=== PATIENT | female | born 1935 | race Caucasian/White ===

== ENCOUNTER → 2016-10-26 18:40 | Observation (INO) ==
--- NOTE | 2016-10-25 11:11 | History & Physical Report ---
<Asia Enriquez - Last Filed: 10/25/16 12:00> History of Present Illness Date: 10/25/16 Chief complaint: back pain HPI: Clara Moncada is a 81 y/o lady directly admitted to observation status from Dr. Caro's office for intractable back and b/l hip pain. She states her pain started in her right hip on Friday night (10/19/16), and she thought it was arthritis. By the following day, the pain spread across her lower abdomen, to her back, and left hip. She saw Dr. Caro on Friday, and she found an insect bite on her abd that represented a bullseye appearance. Concerned for tick- borne illness causing joint pain, she Rx Doxyclycine. However, on Friday am, her pain was even worse. She was barely able to move, let alone walk. She went to the ED, where a CT of her abd/pelvis was obtained (overall negative) and was Rx Medrol and Percocet (but never filled the Percocet). She has not seen an improvement in pain since the onset. Denies fevers, chills, but did have some sweating one day. She denies paresthesias, loss of bowel function, dysuria, or frequency. She has chronic urinary incontinence. She has had mild intermittent nausea, but no vomiting/constipation/diarrhea. She had chest pressure last night that was relieved by resting/relaxing - she thinks her pain was r/t frustration and anxiety. She also notes some post-nasal drip and dry throat without cough or dyspnea. No weakness/dizziness. Dr. Caro noticed a 9 lb weight gain and Clara has seen an increase in swelling to her legs. She skipped her Lasix dose on 1 day (10/22/16), but has taken it other days. Review of Systems All systems: reviewed and no additional remarkable complaints except as stated - Constitutional Constitutional: Present: weight gain. Absent: chills - EENMT Eyes: Absent: change in vision Nose: Present: allergies Mouth/Throat: Present: scratchy throat, dry mouth - Cardiovascular Cardiovascular: Present: chest pain, heart murmur Vascular: Present: pedal edema, unilateral swelling (left leg is always more swollen) - Respiratory Respiratory: Absent: cough - Gastrointestinal Gastrointestinal: Present: abdominal pain, nausea. Absent: constipation, diarrhea, vomiting - Musculoskeletal Musculoskeletal: Present: as per HPI, back pain. Absent: arthralgias, joint swelling, muscle weakness - Integumentary/Breasts Integumentary: Present: other (insect, possibly tick bite, to right side of abdomen - fading) - Neurological Neurological: Absent: burning sensations, numbness, paresthesias, weakness - Endocrine Endocrine: Absent: excessive sweating - Hematologic/Lymphatic Hematologic/Lymphatic: Present: easy bruising - Allergic/Immunologic Allergic/Immunologic: Present: seasonal rhinorrhea PFSH CHF, diastolic CAD, ischemic heart disease HTN Breast cancer 1993 CKD stage III OA Obesity Macular degeneration Surgical History: 1979 Cholecystectomy. 1982 Total Hysterectomy. 1993 Radical Right mastectomy. 1998 Bladder procedure. 2000 Septoplasty for deviated septum. 2002 Modified left mastectomy (prophylactic). 2004 Endoscopic sinus surgery. 2004 and 2009 colonoscopies. 2007 Bunionectomy and toe repair. 2011 ORIF left elbow/arm. 2012 Right cataract surgery. 02/2016 Cardiac catheterization with stent. 07/2016 Chemical stress test - Left inferior wall ischemia. Echo - grade I/IV diastolic dysfunction, EF 70% Family History: Brother - heart problems, at age 89 Brother - of lung cancer, at age 54 Sister - non Hodgkin lymphoma, stage IV ovarian cancer - still living (3 years younger than Clara Burns) Sister - CAD with 3 stents (7 years older than Clara Burns) Mother - thyroid problems in her later years, at ate 96 Father - at age 78 of a tractor accident Son - prediabetic, had part of thyroid removed Daughter - MVP, pituitary adenoma - Social History Smoking status: Never smoker Substance use type: does not use Alcohol intake frequency: does not drink Housing: house Household members: none Social history: PCP - Dr. Caro CV - Dr. Albarran Neph - Dr. Wilcox Medications Home Medications Medication Instructions Recorded Confirmed Type Aspirin [Aspir 81] 81 mg PO DAILY #0 08/23/09 10/25/16 History Furosemide 80 mg PO DAILY #0 08/24/09 10/25/16 History Propylene Glycol/Peg 400 [Systane 1 drop BOTH EYES QID #0 02/23/12 10/25/16 History Gel Eye Drops] Allopurinol 200 mg PO DAILY #0 tab 08/09/13 10/25/16 History Atenolol 50 mg PO DAILY #0 tab 07/25/14 10/25/16 History Cholecalciferol (Vitamin D3) 1,000 unit PO DAILY #0 07/25/14 10/25/16 History [Vitamin D3] Potassium Chloride 40 meq PO BIDWM #0 tab 07/25/14 10/25/16 History Atorvastatin 20 mg PO DAILY 10/22/16 10/25/16 History Clopidogrel 75 mg PO DAILY 10/22/16 10/25/16 History Colace 100 mg PO BID PRN 10/22/16 10/25/16 History Doxycycline Monohydrate 100 mg PO BID 10/22/16 10/25/16 History Flaxseed 2 - 3 tbsp PO DAILY 10/22/16 10/25/16 History Levothyroxine Sodium 100 mg PO ACB 10/22/16 10/25/16 History Nitroglycerin 0.4 mg SL Q5M PRN 10/22/16 10/25/16 History Women's Daily Caplet 1 tab PO DAILY 10/22/16 10/25/16 History Allergies Allergy/AdvReac Type Severity Reaction Status Date / Time lisinopril Allergy Severe Renal Verified 10/25/16 10:49 Insufficiency amoxicillin Allergy Intermediate LIGHTHEADED Verified 10/25/16 10:49 NESS diltiazem Allergy Intermediate FLUID Verified 10/25/16 10:49 RETENTION enalapril Allergy Intermediate DRY COUGH Verified 10/25/16 10:49 hydrochlorothiazide Allergy Intermediate RASH Verified 10/25/16 10:49 metoprolol Allergy Intermediate Verified 10/25/16 14:57 sulfamethoxazole Allergy Intermediate BURNING IN Verified 10/25/16 10:49 THROAT triamterene Allergy Intermediate RASH Verified 10/25/16 10:49 trimethoprim Allergy Intermediate BURNING IN Verified 10/25/16 10:49 THROAT acetaminophen [From Lortab] AdvReac Intermediate Abdominal Verified 10/25/16 14: 57 Discomfort azithromycin AdvReac Intermediate Arrhythmia Verified 10/25/16 15:05 carvedilol AdvReac Intermediate Itching Verified 10/25/16 15:05 codeine AdvReac Intermediate Fainting Verified 10/25/16 15:05 gemfibrozil AdvReac Intermediate Abdominal Verified 10/25/16 15:05 Discomfort hydrocodone [From Lortab] AdvReac Intermediate Abdominal Verified 10/25/16 14:57 Discomfort indomethacin AdvReac Intermediate Shortness Verified 10/25/16 15:05 of Breath (Air) meloxicam AdvReac Intermediate Verified 10/25/16 15:05 morphine AdvReac Intermediate Hallucinati Verified 10/25/16 15:05 ng nitrofurantoin AdvReac Intermediate Verified 10/25/16 15:05 [From Macrobid] spironolactone AdvReac Intermediate Rash Verified 10/25/16 15:05 telithromycin [From Ketek] AdvReac Intermediate Rash Verified 10/25/16 15:05 meperidine HCl Allergy Severe HALLUCINATI Uncoded 10/25/16 10:49 ONS Exam Height: 1.63 m Weight: 103.2 kg Body Mass Index: 39.0 - Constitutional Present: no acute distress, well nourished, well developed, morbidly obese - Routine HEENT Exam Head: Present: normocephalic, atraumatic Eye: Absent: conjunctival icterus, scleral injection ENT: Present: mucous membranes dry, oropharynx clear, dentition normal - Routine Neck Exam Present: supple - Routine Respiratory Exam Present: CTA bilaterally - Routine Cardiovascular Exam Present: S1, S2, murmur (2/6 systolic murmur) - Routine Abdominal Exam Present: soft, normoactive bowel sounds, non distended, non tender - Routine Extremities Exam Present: edema (1+ BLE; right leg is more swollen - chronic per patient), pulses intact, normal capillary refill. Absent: calf tenderness, joint swelling - Routine Back/Spine/Pelvis Exam Back/Spine: Absent: paraspinal tenderness, vertebral tenderness, muscle spasm Pelvis: Absent: sacral tenderness Comments: Patient did not want to roll to the side or stand up because of fear of pain. I did not ask her to do these activities since Dr. Leon was going to evaluate her. - Routine Skin Exam Present: intact, dry, warm, ecchymosis (arms) - Routine Neurological Exam Present: alert, oriented X3 - Routine Psychiatric Exam Present: normal affect, normal thought process Results - Labs CBC & Chem 7: 10/25/16 11:34 10/25/16 11:34 Assessment and Plan (1) Intractable pain Current visit: Yes Status: Acute (2) Tick bite of abdomen Current visit: Yes Status: Acute (3) CHF (congestive heart failure) Current visit: Yes Status: Chronic (4) HTN (hypertension) Current visit: Yes Status: Chronic (5) CKD (chronic kidney disease) stage 3, GFR 30-59 ml/min Current visit: Yes Status: Chronic (6) CAD (coronary artery disease) Current visit: Yes Status: Chronic Assessment and Plan: Admit to observation status 1. Back/hip pain -Check basic labs - CBC, BMP, CRP, UA -Consult Dr. Leon - recommend MRI of lumbar and spine f/u -Recent imaging: CT abd/pelvis on 10/22/16: bone windows show degenerative changes and scoliosis; no acute disease -consult PT/OT after MRI results are known -pain control: multiple allergies. Agreeable to try tramadol; low-dose Dilaudid if needed. 2. Hx diastolic CHF with acute 9 lb weight gain -check BNP -CXR to assess pulmonary fluid status 3. Possible tick bite to abdomen -continue Doxycycline 4. Advanced care planning -none completed -Full code 5. Discharge planning -Dependent on PT/OT eval and MRI results Discussed with Dr. Leon, NICKIE Escobar, Dr. Wilkins, and nursing staff. Hospital Course Summary Disclaimer: The visit summary below is not to be considered part of the above Progress Note. Hospital Course: 10/25/16 12:35 Admit to observation status 1. Back/hip pain -Check basic labs - CBC, BMP, CRP, UA -Consult Dr. Leon - recommend MRI of lumbar and spine f/u -Recent imaging: CT abd/pelvis on 10/22/16: bone windows show degenerative changes and scoliosis; no acute disease -consult PT/OT after MRI results are known -pain control: multiple allergies. Agreeable to try tramadol; low-dose Dilaudid if needed. 2. Hx diastolic CHF with acute 9 lb weight gain -check BNP -CXR to assess pulmonary fluid status 3. Possible tick bite to abdomen -continue Doxycycline 4. Advanced care planning -none completed -Full code 5. Discharge planning -Dependent on PT/OT eval and MRI results <Vicenta Wilkins - Last Filed: 10/25/16 21:54> History of Present Illness Date: 10/25/16 REPLACED BY [facility] Patient Stated Medical History Cataracts Yes Dental Problems Yes Hearing Loss Yes: USES HEARING AIDES Macular Degeneration WEARS GLASSES Congestive Heart Failure Yes Coronary Artery Disease Yes Heart Murmur Yes Hypertension Yes Other GI Yes: CONSTIPATION Hx Incontinence Yes Hx Renal Disease Yes: RENAL FAILURE Osteoarthritis Yes: RIGHT HIP Other Musculoskeletal Yes: HUMERUS LEFT FX Ovarian Cysts Yes Post Menopausal Yes Exam Vital Signs: Temp Pulse Resp BP Pulse Ox 97.4 F 55 L 16 141/66 H 95 10/25/16 16:00 10/25/16 16:00 10/25/16 16:00 10/25/16 16:00 10/25/16 16:00 Height: 1.63 m Weight: 103.2 kg Results - Labs CBC & Chem 7: 10/25/16 11:34 10/25/16 11:34 Assessment and Plan (1) Intractable pain Current visit: Yes Status: Acute (2) CHF (congestive heart failure) Current visit: Yes Status: Chronic Chronic diastolic CHF-ejection fraction 75% earlier this year 10/25/16 21:41 (3) HTN (hypertension) Current visit: Yes Status: Chronic (4) CKD (chronic kidney disease) stage 3, GFR 30-59 ml/min Current visit: Yes Status: Chronic (5) Tick bite of abdomen Current visit: Yes Status: Acute 10/25/16 21:40 Presumed (6) CAD (coronary artery disease) Current visit: Yes Status: Chronic (7) Leukocytosis Current visit: Yes Status: Acute 10/25/16 21:42 Consistent with steroids Assessment and Plan: I have independently evaluated and examined this patient. I reviewed the chart, the patient's history, and the [employer] T[employer]EL E[employer]IC OPERATOR's documented findings as above. We discussed and formulated the assessment and plan as above with additions as below: Mrs. Moncada presents with pain across her low back and left hip after originally presenting in the right hip. There are no radicular symptoms or sensory loss. She denies bowel or bladder dysfunction. Pain is aggravated by movement and weightbearing. Patient is able to raise legs independently, dorsiflexion plantar flexion are intact, knee jerks cannot be elicited, and sensation is present medial and laterally proximally and distally in the lower extremities. Temporally onset of pain corresponds to identification of a target lesion on the abdomen. I did not identify point tenderness over the lumbar spine (although spinal tenderness was reported by orthopedics) or SI joints. Laboratory data notable only for leukocytosis explained by recent steroids and mild hypernatremia. BNP minimally elevated. MRI obtained and reviewed by myself revealing superior endplate compression fracture at L3 with edema and some DDD without central stenosis or significant neural foraminal stenosis. Chest x-ray also reviewed by myself revealing mild increased vascular markings diffusely. Discussed with Dr. Leon earlier today; patient advised of results of MRI-denies any falls since June but reports she does significant lifting. Discontinue prednisone. Continue Percocet with increased frequency of every 4 when necessary. Will obtain LS spine films for baseline and to better assess degree of compression. Schmidt catheter placed to permit aggressive diuresis overnight. Discussed with Dr. Caro earlier today. Outpatient records reviewed. Sepsis Assessment - Focused Exam Vital Signs Temp Pulse Resp BP Pulse Ox 10/25/16 16:00 97.4 F 55 L 16 141/66 H 95 10/25/16 10:13 52 L 18 181/71 H 97 Hospital Course Summary Disclaimer: The visit summary below is not to be considered part of the above Progress Note.
--- NOTE | 2016-10-25 12:47 | Orthopedic Consult Note ---
Orthopedic Consultation HPI - Consultation Info Consult Date: 10/25/16 Attending Physician: Dc Leon MD Consult Reason: back pain (and bilateral hip pain) - HPI Elements bilateral back Injury: No Pain: sharp, throbbing Onset: sudden (10/19/16) Radiating: Yes (to anterior pelvic area and lower back) Severity: moderate, severe Duration: several days How Often Does Pain Occur: constant Previous Surgery: No (no previous back surgery) Previous Injury: No Aggrevated by: standing, walking, prolonged sitting, all activity Treatments Tried: pain medications, rest X-ray Findings: Other (CT abdomen pelvis shows scoliosis and degenerative arthritis of bilateral hips. No fracture.) Recommendation: other (Her symptoms seem less consistent with hip or pelvis origin. They are possibly arising from her lower back. Dr. Leon does not specialize in spine, and is recommending orthopeadic spine referral. MRI would be helpful and could be ordered as per hospitalist team.) - History of Present Illness This is a 81 year old female who presents with chief complaint of pelvic pain and lower back pain. She is a patient of Dr. Caro. Dr. Caro recommended admission under the hospitalist service for intractable lower back and bilateral hip pain. She has had a CT of her abdomen and pelvis complete in the ER on 10/22/16 which showed scoliosis, DJD of bilateral hips and otherwise negative for acute issue. Her onset was 10/19/16, without known injury. Pain began in her left lateral hip, then radiated to her lumbar back and right anterior pelvic area. She points generally to the level of bilateral ASIS. Her pain has been worse with ambulation, she gets some relief with sitting. Prolonged sitting also causes pain. Laying down flat increases pain, but she gets relief if she elevated the head of the bed and puts a pillow under her knees. She denies true radicular pain below the level of the knees. She denies previous back surgery. Her daughter has noted that she walks with a cane and has had progressive forward pitch of her upper body as the years have gone by. She also noted a tick bite on the right lower abdomen, daughter describes a "target lesion", which has been treated according to the medical service with Doxycycline. She has not had an MRI at the time of this consultation. Review of Systems - Constitutional Constitutional: Absent: chills, headache(s), malaise - Cardiovascular Cardiovascular: Absent: chest pain, syncope Vascular: Absent: pallor of an extermity - Respiratory Respiratory: Absent: cough, dyspnea - Gastrointestinal Gastrointestinal: Present: constipation (last week, self treated with Flax seed. ). Absent: abdominal pain, diarrhea, hematochezia - Genitourinary Genitourinary General: Absent: chills, fever(s) Genitourinary Female: Absent: dysuria - Musculoskeletal Musculoskeletal: Present: as per HPI Additional comments: Denies true groin pain with ambulation - Neurological Neurological: Absent: memory loss, numbness, radicular pain, sensory deficit [facility] Patient Stated Medical History Cataracts Yes Dental Problems Yes Hearing Loss Yes: USES HEARING AIDES Macular Degeneration WEARS GLASSES Congestive Heart Failure Yes Coronary Artery Disease Yes Heart Murmur Yes Hypertension Yes Other GI Yes: CONSTIPATION Hx Incontinence Yes Hx Renal Disease Yes: RENAL FAILURE Osteoarthritis Yes: RIGHT HIP Other Musculoskeletal Yes: HUMERUS LEFT FX Ovarian Cysts Yes Post Menopausal Yes Surgical History: 1979 Cholecystectomy. 1982 Total Hysterectomy. 1993 Radical Right mastectomy. 1998 Bladder procedure. 2000 Septoplasty for deviated septum. 2002 Modified left mastectomy (prophylactic). 2005 Endoscopic sinus surgery. 2004 and 2010 colonoscopies. 2008 Bunionectomy and toe repair. 2011 ORIF left elbow/arm. 2013 Right cataract surgery. 02/2016 Cardiac catheterization with stent. 07/2016 Chemical stress test - Left inferior wall ischemia. Echo - grade I/IV diastolic dysfunction, EF 70% - Social History Smoking status: Never smoker Medications Home Medications Medication Instructions Recorded Confirmed Type Aspirin [Aspir 81] 81 mg PO DAILY #0 08/23/09 10/22/16 History Furosemide 80 mg PO DAILY #0 08/24/09 10/22/16 History Propylene Glycol/Peg 400 [Systane 1 drop BOTH EYES QID #0 02/23/12 10/22/16 History Gel Eye Drops] Allopurinol 200 mg PO DAILY #0 tab 08/09/13 10/22/16 History Atenolol 50 mg PO DAILY #0 tab 07/25/14 10/22/16 History Cholecalciferol (Vitamin D3) 1,000 unit PO DAILY #0 07/25/14 10/22/16 History [Vitamin D3] Potassium Chloride 40 meq PO BIDWM #0 tab 07/25/14 10/22/16 History Atorvastatin 20 mg PO DAILY 10/22/16 10/22/16 History Clopidogrel 75 mg PO DAILY 10/22/16 10/22/16 History Colace 100 mg PO BID PRN 10/22/16 10/22/16 History Doxycycline Monohydrate 100 mg PO BID 10/22/16 10/22/16 History Flaxseed 2 - 3 tbsp PO DAILY 10/22/16 10/22/16 History Levothyroxine Sodium 100 mg PO ACB 10/22/16 10/22/16 History Nitroglycerin 0.4 mg SL Q5M PRN 10/22/16 10/22/16 History Women's Daily Caplet 1 tab PO DAILY 10/22/16 10/22/16 History Allergies Allergy/AdvReac Type Severity Reaction Status Date / Time lisinopril Allergy Severe Renal Verified 10/25/16 10:49 Insufficiency amoxicillin Allergy Intermediate LIGHTHEADED Verified 10/25/16 10:49 NESS diltiazem Allergy Intermediate FLUID Verified 10/25/16 10:49 RETENTION enalapril Allergy Intermediate DRY COUGH Verified 10/25/16 10:49 hydrochlorothiazide Allergy Intermediate RASH Verified 10/25/16 10:49 metoprolol Allergy Intermediate Gastrointestinal Verified 10/25/16 10:49 Upset sulfamethoxazole Allergy Intermediate BURNING IN Verified 10/25/16 10:49 THROAT triamterene Allergy Intermediate RASH Verified 10/25/16 10:49 trimethoprim Allergy Intermediate BURNING IN Verified 10/25/16 10:49 THROAT meperidine HCl Allergy Severe HALLUCINATI Uncoded 10/25/16 10:49 ONS Orthopedic Exam Vital signs: Pulse Resp BP Pulse Ox 52 L 18 181/71 H 97 10/25/16 10:13 10/25/16 10:13 10/25/16 10:13 10/25/16 10:13 - Constitutional General Appearance: Present: alert, orientated x3, no acute distress - Respiratory Exam Present: non-labored - Cardiovascular Exam Present: pedal pulses intact Capillary Refill: < 2-3 Seconds - Abdominal Exam Present: soft. Absent: tenderness, distended - Extremities Exam Present: pulses intact. Absent: no edema, calf tenderness, joint swelling - Hip Exam bilateral Hip Exam: Present: alignment normal, ROM-normal. Absent: unequal leg length, tender over trochanter, painful PROM Comments: negative log roll. Pain free passive and active ROM. She is TTP in the lumbar spine. - Integumentary Exam Present: pink, warm, dry, lesions (right lower abdomen, "tick bit" per history) - Neurological Exam Present: intact to light touch, no deficits downgoing Babinski, no clonus present. David intact L1-S1. - Psychiatric Exam Present: alert, oriented, normal affect - Labs Result Diagrams: 10/25/16 11:34 10/25/16 11:34 Abnormal lab results 10/25/16 10/25/16 10/25/16 Range/Units 10:30 11:34 11:34 WBC 12.2 H D (4.5-11.0) T/MM3 RBC 3.85 L (4.00-5.20) M/MM3 Hgb 11.8 L (12-16) GM/DL MPV 9.2 L (9.4-12.4) UM3 Neutrophils % (Manual) 90.0 H (33-66) % Lymphocytes % (Manual) 5.0 L (23-45) % Metamyelocytes % 1.0 H (0-0) % Neutrophils # (Manual) 11.0 H (1.8-7.7) T/MM3 Lymphocytes # (Manual) 0.6 L (1-4.8) T/MM3 Sodium 147 H (134-144) MEQ/L Carbon Dioxide 31 H (22-30) MEQ/L BUN 21.0 H (7-17) MG/DL Calculated Osmolality 285 H (261-280) MOSM/KG B-Natriuretic Peptide 611 H (0-175) pg/mL Urine Bacteria 1+ H (NEGATIVE) H & H 10/25/16 Range/Units 11:34 Hgb 11.8 L (12-16) GM/DL Hct 36.9 (36-46) % Impression and Recommendation (1) Back pain Current visit: Yes Qualifiers: Back pain location: low back pain Back pain laterality: bilateral Sciatica presence: without sciatica Status: Acute Refferral to an orthopaedic client relations specialist on an outpatient basis. MRI would be suggested for further evaluation and could be ordered as per hospitalist. Our suspicion is that she has left sided foraminal narrrowing secondary to scoliosis and spinal stenosis. Ortho will sign off at this time. Continue current medical care. Hospital Course Summary Disclaimer: The visit summary below is not to be considered part of the above Progress Note. Hospital Course: 10/25/16 12:35 Admit to observation status 1. Back/hip pain -Check basic labs - CBC, BMP, CRP, UA -Consult Dr. Leon - recommend MRI of lumbar and spine f/u -Recent imaging: CT abd/pelvis on 10/22/16: bone windows show degenerative changes and scoliosis; no acute disease -consult PT/OT after MRI results are known -pain control: multiple allergies. Agreeable to try tramadol; low-dose Dilaudid if needed. 2. Hx diastolic CHF with acute 9 lb weight gain -check BNP -CXR to assess pulmonary fluid status 3. Possible tick bite to abdomen -continue Doxycycline 4. Advanced care planning -none completed -Full code 5. Discharge planning -Dependent on PT/OT eval and MRI results
--- NOTE | 2016-10-25 13:29 | XRay Report ---
Indication: chf PROCEDURE: XR chest 1V: Encounter: Initial Comparison: None Findings: The lungs are grossly clear. Areas of lucency suggesting possible emphysema. No pleural effusion or pneumothorax. Cardiac silhouette is moderately enlarged. Mediastinal contours and pulmonary vascularity are within normal limits. Right axillary surgical clips. Impression: No pneumonia. Enlarged cardiac silhouette could be due to cardiomegaly or pericardial effusion. .
--- NOTE | 2016-10-25 16:09 | Magnetic Resonance Report ---
Indication: intractable pain PROCEDURE: MR lumbar spine wo con: Encounter: Initial Comparison: None Technique: Multiplanar multisequence MR imaging of the lumbar spine was performed without contrast. Findings: Scoliosis. There is a mild superior endplate compression deformity of L3 with underlying edema suggesting a recent injury. The remaining lumbar vertebral body heights are maintained. Small hemangiomas noted incidentally at L1 and L2. Bone marrow signal intensity is otherwise normal. Conus medullaris terminates normally at L1. The paraspinal soft tissues show bilateral renal cysts. Segmental analysis: L1-L2: Minimal disk bulging without central canal or neural foraminal stenosis. L2-L3: No focal central protrusion or central canal stenosis. Mild degenerative facet hypertrophy contributing to mild right neural foraminal narrowing along with a right lateral osteophyte. L3-L4: Left lateral disk bulge. No central canal stenosis. There is narrowing of the left lateral recess and minimal left neural foraminal stenosis. No right foraminal narrowing. L4-L5: Small annular disk bulge with ligamentum flavum thickening causing mild to moderate central canal narrowing. Degenerative facet disease contributing to mild right and moderate left neural foraminal stenosis. L5-S1: Degenerative facet disease with a bilobed disk osteophyte complex. No central canal stenosis. Mild bilateral neural foraminal stenosis. Impression: Acute mild superior endplate compression fracture of L3. .
[2016-10-25] MEDS: SALINE FLUSH 10ml SYRINGE IV PRN (20:46)
[2016-10-26] MEDS: SYSTANE EYE DROPS 0.7ml EACH EYE SCH ×2 (06:49→09:30)
[2016-10-26] MEDS: [UNRECOGNIZED DRUG - OTHER] EACH EYE SCH ×2 (13:14→17:07)
[2016-10-26] MEDS: SALINE FLUSH 10ml SYRINGE IV PRN (15:24)
--- NOTE | 2016-10-26 16:42 | Discharge Summary ---
Discharge Plan - Med Rec/Dispo Referrals/Follow Up: Samantah Caro MD [Family Provider] - 1 Week [facility] Instructions: Back Pain (GEN), Hip Pain (GEN) Prescriptions: New Acetaminophen [Tylenol] 650 mg PO Q5H PRN PRN Reason: Discomfort Amoxicillin 500 mg PO Q8HR #30 cap Continue Atenolol 50 mg PO DAILY #0 tab Levothyroxine Sodium 100 mg PO ACB Women's Daily Caplet 1 tab PO DAILY Clopidogrel 75 mg PO DAILY Nitroglycerin 0.4 mg SL Q5M PRN PRN Reason: Chest Pain Furosemide 80 mg PO DAILY #0 Aspirin [Aspir 81] 81 mg PO DAILY #0 Propylene Glycol/Peg 400 [Systane Gel Eye Drops] 1 drop BOTH EYES QID #0 Allopurinol 200 mg PO DAILY #0 tab Potassium Chloride 40 meq PO BIDWM #0 tab Cholecalciferol (Vitamin D3) [Vitamin D3] 1,000 unit PO DAILY #0 Colace 100 mg PO BID PRN PRN Reason: Constipation Flaxseed 2 - 3 tbsp PO DAILY Atorvastatin 20 mg PO DAILY Changed Oxycodone/APAP 5/325 [Percocet 5/325] 0.5 tab PO Q6H PRN #10 tablet PRN Reason: Pain Discontinued Doxycycline Monohydrate 100 mg PO BID PredniSONE [Deltasone] 20 mg PO BIDWM #8 tablet - Disposition 01 Discharged Home, Self-Care
[2016-10-26] MEDS: AMOXICILLIN 500 MG CAPSULE PO SCH ×3 (17:07→18:16)
--- NOTE | 2016-10-26 17:49 | Discharge Summary ---
Discharge Plan - Med Rec/Dispo Referrals/Follow Up: Samantha Coronel MD [Family Provider] - 1 Week (CALL DR. CORONEL OFFICE TO SCHEDULE AN APPOINTMENT IN ONE WEEK, OFFICE NUMBER [phone]) [place] Instructions: Back Pain (GEN), Hip Pain (GEN) Prescriptions: New Acetaminophen [Tylenol] 650 mg PO Q5H PRN PRN Reason: Discomfort Amoxicillin 500 mg PO Q8HR #30 cap Continue Atenolol 50 mg PO DAILY #0 tab Levothyroxine Sodium 100 mg PO ACB Women's Daily Caplet 1 tab PO DAILY Clopidogrel 75 mg PO DAILY Nitroglycerin 0.4 mg SL Q5M PRN PRN Reason: Chest Pain Furosemide 80 mg PO DAILY #0 Aspirin [Aspir 81] 81 mg PO DAILY #0 Propylene Glycol/Peg 400 [Systane Gel Eye Drops] 1 drop BOTH EYES QID #0 Allopurinol 200 mg PO DAILY #0 tab Potassium Chloride 40 meq PO BIDWM #0 tab Cholecalciferol (Vitamin D3) [Vitamin D3] 1,000 unit PO DAILY #0 Colace 100 mg PO BID PRN PRN Reason: Constipation Flaxseed 2 - 3 tbsp PO DAILY Atorvastatin 20 mg PO DAILY Changed Oxycodone/APAP 5/325 [Percocet 5/325] 0.5 tab PO Q6H PRN #10 tablet PRN Reason: Pain Discontinued Doxycycline Monohydrate 100 mg PO BID PredniSONE [Deltasone] 20 mg PO BIDWM #8 tablet - Disposition 01 Discharged Home, Self-Care
[~2016-10-26 18:40] MED LIST: ACETAMINOPHEN 325 MG TABLET PO PRN; ALLOPURINOL 100 MG PO SCH; ASPIRIN *EC* 81 MG TAB - PT OWN PO SCH; ATENOLOL 50 MG PO SCH; ATORVASTATIN 20 MG PO SCH; CLOPIDOGREL 75 MG TABLET PO SCH; FUROSEMIDE 20 MG/2 ML INJECTION IVP ONE; FUROSEMIDE 40 MG PO SCH; FUROSEMIDE 40 MG/4 ML INJECTION IVP ONE; LEVOTHYROXINE 100 MCG TAB - PT OWN PO SCH; OXYCODONE/APAP 5 MG/325 MG TABLET PO PRN; PredniSONE 20 MG TABLET PO SCH
--- NOTE | 2016-10-26 22:25 | Discharge Summary ---
Discharge Information Date of admission: 10/25/16 09:41 Anticipated date of discharge: 10/26/16 Attending Physician: Vicenta Wilkins MD Primary care physician: Samantha Caro MD Consults: Dre Leon - Discharge Diagnosis (1) Compression fracture of L3 lumbar vertebra Qualifiers: Fracture type: closed Status: Acute (2) Intractable pain Problem Details: low back/hips Status: Acute (3) CHF (congestive heart failure) Qualifiers: Congestive heart failure type: diastolic Congestive heart failure chronicity: chronic Qualified Code(s): I50.32 - Chronic diastolic (congestive ) heart failure Status: Chronic (4) HTN (hypertension) Qualifiers: Hypertension type: essential hypertension Qualified Code(s): I10 - Essential (primary) hypertension Status: Chronic (5) CKD (chronic kidney disease) stage 3, GFR 30-59 ml/min Status: Chronic (6) Tick bite of abdomen Qualifiers: Encounter type: subsequent encounter Qualified Code(s): S30.861D - Insect bite (nonvenomous) of abdominal wall, subsequent encounter; W57.XXXD - Bitten or stung by nonvenomous insect and other nonvenomous arthropods, subsequent encounter Problem Details: presumed Status: Acute (7) CAD (coronary artery disease) Qualifiers: Coronary Disease-Associated Artery/Lesion type: [place] artery [place] vs. transplanted heart: [place] heart Associated angina: without angina Qualified Code(s): I25.10 - Atherosclerotic heart disease of [place] coronary artery without angina pectoris Status: Chronic (8) Leukocytosis Qualifiers: Leukocytosis type: unspecified Qualified Code(s): D72.829 - Elevated white blood cell count, unspecified Status: Acute - Laboratory Labs: 10/25/16 11:34 10/26/16 11:37 - Radiology Radiology: MRI lumbar spine without contrast- Scoliosis. There is a mild superior endplate compression deformity of L3 with underlying edema suggesting a recent injury. The remaining lumbar vertebral body heights are maintained. Small hemangiomas noted incidentally at L1 and L2. Bone marrow signal intensity is otherwise normal. Conus medullaris terminates normally at L1. The paraspinal soft tissues show bilateral renal cysts. Segmental analysis: L1-L2: Minimal disk bulging without central canal or neural foraminal stenosis. L2-L3: No focal central protrusion or central canal stenosis. Mild degenerative facet hypertrophy contributing to mild right neural foraminal narrowing along with a right lateral osteophyte. L3-L4: Left lateral disk bulge. No central canal stenosis. There is narrowing of the left lateral recess and minimal left neural foraminal stenosis. No right foraminal narrowing. L4-L5: Small annular disk bulge with ligamentum flavum thickening causing mild to moderate central canal narrowing. Degenerative facet disease contributing to mild right and moderate left neural foraminal stenosis. L5-S1: Degenerative facet disease with a bilobed disk osteophyte complex. No central canal stenosis. Mild bilateral neural foraminal stenosis. Impression: Acute mild superior endplate compression fracture of L3. 3 views [id number] pending History of Present Illness HPI: Clara Moncada is a 81 y/o lady directly admitted to observation status from Dr. Caro's office for intractable back and b/l hip pain. She states her pain started in her right hip on Friday night (10/19/16), and she thought it was arthritis. By the following day, the pain spread across her lower abdomen, to her back, and left hip. She saw Dr. Caro on Friday, and she found an insect bite on her abd that represented a bullseye appearance. Concerned for tick- borne illness causing joint pain, she Rx Doxyclycine. However, on Friday am, her pain was even worse. She was barely able to move, let alone walk. She went to the ED, where a CT of her abd/pelvis was obtained (overall negative) and was Rx Medrol and Percocet (but never filled the Percocet). She has not seen an improvement in pain since the onset. Denies fevers, chills, but did have some sweating one day. She denies paresthesias, loss of bowel function, dysuria, or frequency. She has chronic urinary incontinence. She has had mild intermittent nausea, but no vomiting/constipation/diarrhea. She had chest pressure last night that was relieved by resting/relaxing - she thinks her pain was r/t frustration and anxiety. She also notes some post-nasal drip and dry throat without cough or dyspnea. No weakness/dizziness. Dr. Caro noticed a 9 lb weight gain and Clara has seen an increase in swelling to her legs. She skipped her Lasix dose on 1 day (10/22/16), but has taken it other days. Hospital Course Hospital course: Mrs. Moncada was hospitalized on outpatient status to permit evaluation of progressive back pain in conjunction with increased weight/edema attributed to recent missed diuretic dose. She was seen in consultation by Dr. Leon and MRI of the back obtained which revealed L3 compression fracture. Plain films were subsequently obtained but report is pending at discharge. With decreased activity overnight pain control improved significantly by midday 10/26. Patient acknowledges that she tends to overdo things and has been lifting more than his good for her. Modification of activities at home advised in conjunction with continued use of Tylenol and low-dose oxycodone for pain control. She has underlying degenerative disc disease with mild-moderate neural foraminal stenosis at several levels but does not describe radicular symptoms. The patient was converted from doxycycline to amoxicillin for management of what is suspected to be recent tick bite due to patient concern regarding side effects of doxycycline. Records indicate history of allergy to amoxicillin but the allergy reported was lightheadedness and patient preferred to deal with lightheadedness then the potential visual side effects of doxycycline. 10 days treatment prescribed. Schmidt catheter was placed to allow more aggressive diuresis without need to ambulate to the bathroom and aggravate back pain. The patient diuresed 3.8 L prior to discharge and weight was down almost 2 kg the morning of discharge prior to additional IV Lasix and diuresis on 10/26. Patient will continue usual home regimen and monitor weight as in the past. No further problems or complications arose during the hospitalization and she was felt stable for discharge following Schmidt catheter removal late in the afternoon on 10/26. She is asked to follow up with Dr. Caro within 1 week for reassessment. Discharge Plan - Med Rec/Dispo Referrals/Follow Up: Samantha Caro MD [Family Provider] - 1 Week (CALL DR. CARO OFFICE TO SCHEDULE AN APPOINTMENT IN ONE WEEK, OFFICE NUMBER [phone]) [place] Instructions: Back Pain (GEN), Hip Pain (GEN) Prescriptions: New Acetaminophen [Tylenol] 650 mg PO Q5H PRN PRN Reason: Discomfort Amoxicillin 500 mg PO Q8HR #30 cap Continue Atenolol 50 mg PO DAILY #0 tab Levothyroxine Sodium 100 mg PO ACB Women's Daily Caplet 1 tab PO DAILY Clopidogrel 75 mg PO DAILY Nitroglycerin 0.4 mg SL Q5M PRN PRN Reason: Chest Pain Furosemide 80 mg PO DAILY #0 Aspirin [Aspir 81] 81 mg PO DAILY #0 Propylene Glycol/Peg 400 [Systane Gel Eye Drops] 1 drop BOTH EYES QID #0 Allopurinol 200 mg PO DAILY #0 tab Potassium Chloride 40 meq PO BIDWM #0 tab Cholecalciferol (Vitamin D3) [Vitamin D3] 1,000 unit PO DAILY #0 Colace 100 mg PO BID PRN PRN Reason: Constipation Flaxseed 2 - 3 tbsp PO DAILY Atorvastatin 20 mg PO DAILY Changed Oxycodone/APAP 5/325 [Percocet 5/325] 0.5 tab PO Q6H PRN #10 tablet PRN Reason: Pain Discontinued Doxycycline Monohydrate 100 mg PO BID PredniSONE [Deltasone] 20 mg PO BIDWM #8 tablet - Disposition 01 Discharged Home, Self-Care
--- NOTE | 2016-10-28 06:59 | XRay Report ---
Indication: compression fracture PROCEDURE: XR lumbar spine 2-3V: Encounter: Initial Comparison: MRI lumbar spine dated October 25, 2016 Findings: Alignment of the lumbar spine is stable with dextroscoliosis. Interval worsening of the L3 compression deformity. No obvious new compression fracture. Degenerative facet disease of the lower lumbar spine. Impression: Apparent interval worsening in the L3 compression fracture. .
== END | disposition home or self-care (01) ==
LOC: MED
PROVIDERS: ADMIT Internal Medicine; ATTEND Internal Medicine